=== PATIENT | male | born 1960 | race Caucasian/White ===

== ENCOUNTER 2019-05-12 05:47 | Inpatient (IN) | payer OTHER ==
[~2019-05-12] VITALS: Ht 165.1 cm; Wt 86.8 kg
[~2019-05-12 05:47] MED LIST: Percocet 5-3251 EACH PO
--- NOTE | 2019-05-12 06:48 | NUR ---
INTO SDS ADMISSION TO UNIT STARTED. VS WITH ELEVATED BP ALL OTHERS WNL. Ambulatory in Day Surgery History, Chart, Medications and Allergies reviewed before start of procedure.Lungs clear T/O to Auscultation. Patient confirms NPO status and agrees with scheduled surgery.
--- NOTE | 2019-05-12 12:55 | NUR ---
PT ARRIVED TO THE ROOM AT APPROXIMATELY 1050. PT ALERT AND ORIENTED AT TIME OF ARRIVAL TO THE ROOM. DENIES PAIN. ABLE TO FEEL STAFF TOUCHING HIS FEET BUT UNABLE TO WIGGLE TOES. FAMILY PRESENT FOR SUPPORT.
--- NOTE | 2019-05-12 13:31 | NUR ---
PT UNABLE TO VOID POST OP. STRAIGHT CATH REQUIRED. BLADDER SCAN SHOWED 544ML IN BLADDER. 800ML EMPTIED FROM BLADDER.
--- NOTE | 2019-05-12 16:24 | NUR ---
SHIFT SUMMARY PAIN HAS BEEN MANAGED WITH PO PAIN MEDICATION. PT IS A 1 PERSON ASSIST, WITH GAIT BELT AND WALKER WHEN AMBULATING. PT IS TOLERATING PO. PT HAS BEEN ABLE TO VOID, HE DID INITIALLY REQUIRE CATHETERIZATION TO EMPTY HIS BLADDER. VSS. WILL MONITOR UNTIL REPORT TO ONCOMING RN.
--- NOTE | 2019-05-13 02:55 | NUR ---
ASSUMED CARE OF PT. PT SLEEPING IN RIGHT SIDE. CALL LIGHT IN REACH.
--- NOTE | 2019-05-13 03:39 | NUR ---
PAIN PT DOES COMPLAIN OF SOME PAIN BUT NOTHING SIGNIFICANT AND STATES OK TO WAIT UNTIL NEXT PO DOSE OF OXYCODONE. STATES PAIN ONLY BAD WHEN UP AMBULATING. PT IS CURRENTLY IN BED WITH LEGS ELEVATED, ICE IN PLACE.
[2019-05-13 04:49] LABS: BASOPHILS ABSOLUTE AUTO 0.07 K/mm3 (0.00-0.23); BASOPHILS PERCENT AUTO 1 % (0-2); EOSINOPHILS ABSOLUTE AUTO 0.21 K/mm3 (0.00-0.68); EOSINOPHILS PERCENT AUTO 2 % (0-6); Hematocrit 35.4 % (37.0-53.0); Hemoglobin 11.8 g/dL (13.5-17.5); IMMATURE GRAN ABSOLUTE AUTO 0.04 K/mm3 (0.00-0.10); IMMATURE GRAN PERCENT AUTO 0 % (0-1); LYMPHOCYTES ABSOLUTE AUTO 1.66 K/mm3 (0.84-5.20); LYMPHOCYTES PERCENT AUTO 13 % (21-46); MONOCYTES PERCENT AUTO 9 % (4-13); Mean Corpuscular HGB 30.6 pg (26.0-34.0); Mean Corpuscular HGB Conc 33.3 g/dL (31.5-36.5); Mean Corpuscular Volume 92 fL (80-100); Mean Platelet Volume 9.3 fL (9.1-12.4); NEUTROPHILS ABSOLUTE AUTO 9.92 K/mm3 (1.96-9.15); NEUTROPHILS PERCENT AUTO 76 % (41-73); Platelet Count 298 K/mm3 (150-400); RDW Coefficient Variation 12.5 % (11.7-14.2); RDW Standard Deviation 41.6 fL (35.1-46.3); Red Blood Cell Count 3.86 M/mm3 (4.30-5.90)
--- NOTE | 2019-05-13 04:52 | NUR ---
POD 1 S/P LTHA. HAS DONE WELL. PT HAS BEEN UP AMBULATING WITH ONE ASSIST WITH FWW. DRESSING CDI. PAIN MANAGED WITH ORAL NARCOTICS, VOIDING WELL, SL. PLAN FOR DC HOME TODAY AFTER CLEARS PT. CALL LIGHT IN REACH.
[2019-05-13 05:06] LABS: Anion Gap 4 mmol/L (6-16); Blood Urea Nitrogen 12 mg/dL (8-24); Bun/Creatinine Ratio 14.1 (12.0-20.0); CO2, Blood 26 mmol/L (21-32); Calcium, Blood 8.4 mg/dL (8.5-10.1); Chloride, Blood 108 mmol/L (98-108); Creatinine, Blood 0.85 mg/dL (0.60-1.20); Glomerular Filtration Rate >60 (60-); Glucose, Blood 119 mg/dL (70-99); Potassium, Blood 4.2 mmol/L (3.5-5.5); Sodium, Blood 138 mmol/L (136-145)
[2019-05-13] MEDS ORDERED: Aspir 8181 MG PO (09:56)
--- NOTE | 2019-05-13 10:32 | NUR ---
PATIENT D/C'D HOME WITH SISTER AT THIS TIME. PATIENT STATES UNDERSTANDING OF MEDS, ACTIVITY, WOUND CARE, OP PT, F/U ACTIVITY, DIET, ETC. PATIENT STATES PAIN TOLERABLE LEVEL WITH PO MED. TOLERATING PO. VOIDING WELL. L HIP DRESSING D&I. CIRC CHECKS WNL. NO ACUTE CHANGES OR C/O.
== END 2019-05-13 10:31 | disposition home or self-care (01) | DRG 470 ==
LOC: SURS 05:47 → PRE IP 07:30 → SURS 10:38
PROVIDERS: ADMIT Orthopaedic Surgery
PROC: 0SRB04A Replacement of Left Hip Joint with Ceramic on Polyethylene Synthetic Substitute, Uncemented, Open Approach (ICD-10-PCS; principal; 2019-05-12 07:30)
DX: M16.12 Unilateral primary osteoarthritis, left hip (principal); Z87.891 Personal history of nicotine dependence
CPT/HCPCS: 36415; 72170; 80048; 85025; 88300; 90686; 97110; 97116; 97162; C1776; J0171; J0690; J0735; J1885; J2250; J2704; J2795; J3010; J7120

== ENCOUNTER 2019-10-10 11:40 | Day surgery (SDC) | payer OTHER ==
[~2019-10-10] VITALS: Ht 165.1 cm; Wt 84.5 kg
[~2019-10-10 11:40] MED LIST changes: +Aspir 8181 MG PO
== END 2019-10-10 12:55 | disposition home or self-care (01) ==
LOC: ORSCSDS 11:40
PROVIDERS: Internal Medicine Gastroenterology
PROC: 0D758ZZ Dilation of Esophagus, Via Natural or Artificial Opening Endoscopic (ICD-10-PCS; principal; 2019-10-10 13:00)
PROC: 0DB58ZX Excision of Esophagus, Via Natural or Artificial Opening Endoscopic, Diagnostic (ICD-10-PCS; principal; 2019-10-10 13:00)
PROC: 0DB78ZX Excision of Stomach, Pylorus, Via Natural or Artificial Opening Endoscopic, Diagnostic (ICD-10-PCS; principal; 2019-10-10 13:00)
DX: R13.10 Dysphagia, unspecified (principal); K22.2 Esophageal obstruction; K29.70 Gastritis, unspecified, without bleeding; K21.9 Gastro-esophageal reflux disease without esophagitis; Z87.891 Personal history of nicotine dependence
CPT/HCPCS: 88305; 88342; J2250; J2704; J7120